=== PATIENT | male | born 1990 | race Caucasian/White ===

== ENCOUNTER 2017-01-06 17:21 | Emergency (ER) | payer BC, OTHER ==
[~2017-01-06] VITALS: Ht 175.3 cm; Wt 88.5 kg
[~2017-01-06 17:21] MED LIST: CLON1TAB3 PO; NO HOME MEDS; SERT50TA PO
--- NOTE | 2017-01-06 17:30 | NUR ---
ARRIVAL PT AMBULATED WELL TO RM 4 ACCOMPANIED BY HIS MOTHER. NO ACUTE DISTRESS. PT ALERT AND COOP. PLACED ON MONITOR AND TRIAGE DONE
[2017-01-06] MEDS ORDERED: FUL-GLO OP ONE (17:37)
[2017-01-06] MEDS ORDERED: TETRACAINE 0.5% EYE DROPS ONE (17:38)
--- NOTE | 2017-01-06 17:45 | ER.PDOC ---
General Chief Complaint: Requesting Medical Care Stated Complaint: EYE PROBLEM Time seen by MD: 17:31 Source: patient Exam Limitations: no limitations History of Present Illness Initial Comments Pt got eye water from waite and passed his hand on left 1 week ago, two days later he started feeling discomfort and redness on that left eye Timing/Duration: gradual Associated Symptoms: pian, burning, itching, sensitivity to light, redness Location: left eye Severity: moderate Apparent Inury: No Where: park Allergies: Coded Allergies: Cefaclor (Unverified Allergy, Unknown, 01/15/14) Home Meds Reported Medications Sertraline Hcl (ZOLOFT) 50 Mg Tablet, 1 TAB PO DAILY, #30 TAB 04/05/15 [No Home Meds] No Conflict Check 01/15/14 Past Medical History Surgical History: cholecystectomy, tonsillectomy Constitutional: see HPI Eyes: see HPI Ears: see HPI Nose: see HPI Mouth: see HPI Throat: see HPI Respiratory: see HPI Cardiovascular: see HPI Gastrointestinal: see HPI Musculoskeletal: see HPI Skin: see HPI Neurological: see HPI Hematologic/Lymphatic: see HPI Immunological/Allergic: see HPI Physical Exam General Appearance: alert, no distress Visual Acuity: no globe trauma Eyelid: (L) edema, (L) erythema Conjunctiva/Sclera: (L) injected Corneas: nml inspection, exam w/flurescein (L) EOM's: intact, no nystagmus Pupils: PERRL, nml accommodation Head/ENT: nml inspection, pharynx nml Skin Exam: Normal Color, Warm/Dry Neck/Back: nml inspection, painless ROM Resp/CVS: no resp distress, lungs clear, heart sounds nml, reg. rate & rhythm Abdomen: non-tender, no organomegaly NEURO/PSYCH: oriented X3, mood/effect nml Departure Time of Disposition: 17:46 Disposition: 01 HOME, SELF-CARE Impression: Primary Impression: Conjunctivitis Condition: Stable Patient Instructions: Bacterial Conjunctivitis, [id number] Referrals: PCP,UNKNOWN (PCP) PRIMARY CARE PROVIDER ATA JARA MD Jan 06, 2017 17:45
== END 2017-01-06 18:00 | disposition home or self-care (01) ==
LOC: ER 17:21
DX: H10.9 Unspecified conjunctivitis (principal); Z88.8 Allergy status to other drugs, medicaments and biological substances; Z79.899 Other long term (current) drug therapy; Z90.49 Acquired absence of other specified parts of digestive tract
CPT/HCPCS: 99283